=== PATIENT | female | born 1995 | race African-American/Black ===

== ENCOUNTER 2016-08-28 12:43 | Emergency (ER) | payer SELFPAY ==
[~2016-08-28] VITALS: Ht 165.1 cm; Wt 60.0 kg
[2016-08-28] MEDS ORDERED: IBUPROFEN 600MG TABLET PO ONE (13:15)
[2016-08-28 16:04] VITALS: BP 122/64
== END 2016-08-28 16:22 | disposition home or self-care (01) ==
LOC: ER 13:14
DX: S80.01XA Contusion of right knee, initial encounter (principal); R51 Headache; F17.210 Nicotine dependence, cigarettes, uncomplicated; Y04.8XXA Assault by other bodily force, initial encounter; Y93.89 Activity, other specified; Y92.9 Unspecified place or not applicable; Y99.8 Other external cause status
CPT/HCPCS: 73562; 99284

== ENCOUNTER 2018-10-26 21:56 | Emergency (ER) | payer OTHER ==
[~2018-10-26] VITALS: Ht 157.5 cm; Wt 82.0 kg
[2018-10-26] MEDS ORDERED: KETOROLAC 30MG/ML VIAL IV ONE (23:00)
[2018-10-26] MEDS ORDERED: LIDOCAINE HCL 1% 20ML VIAL (Pyxis) INJ INFIL ONE (23:00)
[2018-10-26 23:16] LABS: HEMATOCRIT 41.3 % (36.0-48.0); HEMOGLOBIN 13.7 g/dL (12.0-16.0); MEAN CORPUSCULAR HEMOGLOBIN 31.6 pg (28.0-32.0); MEAN CORPUSCULAR VOLUME 95.4 fL (81.0-99.0); PLATELET 222 x1000/uL (130-400); RED BLOOD CELL COUNT 4.32 mill/uL (4.2-5.4); RED CELL DISTRIBUTION WIDTH 15.1 % (11.6-14.6)
[2018-10-26 23:23] LABS: CHLORIDE 109 mEq/L (98-107)
[2018-10-26] MEDS ORDERED: PIPERACILLIN/TAZ 3.375G PREMIX 50 ML IV NR (23:45)
[2018-10-26] MEDS ORDERED: SODIUM CHLORIDE 0.9% 1000ML BAG (SEPSIS BOLUS) IV NR (23:45)
[2018-10-26] MEDS ORDERED: VANCOMYCIN 1 G PREMIX 200 ML IV NR (23:45)
[2018-10-26] MEDS ORDERED: PIPERACILLIN/TAZOBACTAM 3.375GM/50ML PREMIX IV ONE (23:45)
[2018-10-27] MEDS ORDERED: MORPHINE SULFATE 4 MG/ML CPJ (NOT FOR IM USE) IV ONE
[2018-10-27] MEDS ORDERED: ONDANSETRON HCL 4MG/2ML INJ IV ONE
[2018-10-27 02:30] VITALS: BP 118/71
== END 2018-10-27 03:33 | disposition home or self-care (01) ==
LOC: ER 21:56
DX: K61.1 Rectal abscess (principal); E87.2 Acidosis
CPT/HCPCS: 36415; 80053; 83605; 84145; 85027; 87040; 93005; 96365; 96367; 96375; 99284; J1885; J2270; J2405; J2543; J3370; J3490; J7030; Z7610